=== PATIENT | female | born 1970 | race Hispanic/Latino ===

== ENCOUNTER 2018-01-21 16:01 | Emergency (ER) | payer SELFPAY ==
[2018-01-21 16:45] LABS: Absolute Lymphocytes (CBC) 2.6 K/uL (0.7-4.9); Absolute Monocytes 0.7 K/uL (0.1-1.3); Absolute Neutrophil 8.7 K/uL (1.8-8.0); Basophils % 0.4 % (0-1.3); Eosinophils % 1.2 % (0-4.4); Hematocrit 36.4 % (36.0-45.0); Lymphocytes % 21.3 % (15.3-44.8); MCH 27.8 pg (27.0-35.0); MCV 83.1 fL (80-100); MPV 9.8 fL (7.6-11.3); Monocytes % 5.4 % (3.3-12.3); RBC Red Blood Cell Count 4.39 M/uL (3.86-4.86)
[2018-01-21 16:56] LABS: Bicarbonate 25 mEq/L (21-31); Glucose Level 110 mg/dL (65-120); Potassium 3.7 mEq/L (3.6-5.0); Sodium Level 132 mEq/L (135-145)
[2018-01-21 16:57] LABS: BUN Blood Urea Nitrogen 16 mg/dL (6-20)
[2018-01-21 18:06] LABS: Urine Blood 2+ (NEG); Urine Glucose NEGATIVE (NEG); Urine Protein NEGATIVE (NEG)
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
[2018-01-21] MEDS ORDERED: ONDANSETRON 4 MG/2 ML VIAL ONE (18:19)
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
== END 2018-01-21 20:36 | disposition home or self-care (01) ==
LOC: ER 16:01
DX: S16.1XXA Strain of muscle, fascia and tendon at neck level, initial encounter (principal); V49.40XA Driver injured in collision with unspecified motor vehicles in traffic accident, initial encounter
CPT/HCPCS: 36415; 70450; 71260; 72125; 74177; 80048; 81003; 81025; 84703; 85025; 86850; 86900; 86901; 96374; 99285; J2405; Q9967